=== PATIENT | male | born 1980 | race African-American/Black ===

== ENCOUNTER 2018-07-15 04:02 | Emergency (ER) | payer OTHER, SELFPAY ==
[2018-07-15] MEDS ORDERED: Amlodipine 5 MG TAB ONE (04:28)
[2018-07-15 05:42] LABS: Hemoglobin 16.7 g/dL (14.0-18.0); Mean Corpuscular HGB CONC 32.4 g/dL (32.0-36.0); Mean Corpuscular Hemoglobin 29.6 pg (27.0-31.0); Mean Corpuscular Volume 91.4 fL (78.0-98.0); Mean Platelet Volume 8.2 fL (7.4-10.4); Platelet Count 286 thou/uL (130-400); RBC Distribution Width 12.3 % (11.5-14.5); Red Blood Cell (RBC) Count 5.66 mill/uL (4.70-6.10); White Blood Cell (WBC) Count 5.5 thou/uL (4.8-10.8)
[2018-07-15 05:56] LABS: ALT (SGPT) 23 U/L (8-55); AST (SGOT) 18 U/L (5-34); Albumin 4.3 g/dL (3.5-5.0); Alkaline Phosphatase 57 U/L (40-150); Anion Gap 15 mmol/L (10-20); BUN (Urea Nitrogen) 11 mg/dL (8.9-20.6); Bilirubin, Total 1.5 mg/dL (0.2-1.2); Calc. Creatinine Clearance 0 mL/min (70-130); Calcium 9.4 mg/dL (7.8-10.44); Carbon Dioxide 24 mmol/L (22-29); Chloride 105 mmol/L (98-107); Estimated GFR-MDRD Greater than 90; Globulin 2.8 g/dL (2.4-3.5); Glucose 83 mg/dL (70-105); Potassium 3.7 mmol/L (3.5-5.1); Protein, Total 7.1 g/dL (6.0-8.3); Sodium 140 mmol/L (136-145)
[2018-07-15 06:01] LABS: Lymphocytes 50 % (21-51); MDiff Complete? YES; Monocytes 12 % (0-10); Neutrophil 29 % (42-75); Reactive Lymphocytes 9 % (0-10)
== END 2018-07-15 06:08 | disposition home or self-care (01) ==
LOC: ERS 04:02
DX: I10 Essential (primary) hypertension (principal); F17.210 Nicotine dependence, cigarettes, uncomplicated
CPT/HCPCS: 36415; 80053; 84484; 85025; 99283

== ENCOUNTER 2021-01-02 23:25 | Emergency (ER) | payer SELFPAY | END 2021-01-03 01:00 | disposition home or self-care (01) | LOC: ERS 23:25 | DX: R19.7 Diarrhea, unspecified (principal); I10 Essential (primary) hypertension; F17.210 Nicotine dependence, cigarettes, uncomplicated; Z79.899 Other long term (current) drug therapy | CPT/HCPCS: 99283 ==

== ENCOUNTER 2021-01-23 01:00 | Emergency (ER) | payer SELFPAY | END 2021-01-23 04:02 | disposition home or self-care (01) | LOC: ERS 01:00 | DX: J98.8 Other specified respiratory disorders (principal); B97.89 Other viral agents as the cause of diseases classified elsewhere; Z79.899 Other long term (current) drug therapy; I10 Essential (primary) hypertension | CPT/HCPCS: 99283 ==

== ENCOUNTER 2024-07-10 19:29 | Emergency (ER) | payer OTHER, SELFPAY ==
[2024-07-10] MEDS ORDERED: Lidocaine 1% w/Epinephrine 1:100K 20 ML VIAL ONE (20:32)
== END 2024-07-10 20:55 ==
LOC: ERS 19:29 → EEVIPCON 19:29 → ERS 20:55
DX: L72.3 Sebaceous cyst (principal); I10 Essential (primary) hypertension
CPT/HCPCS: 10060